=== PATIENT | female | born 1985 | race Caucasian/White ===

== ENCOUNTER 2016-07-30 15:13 | Emergency (ER) | payer BC ==
[2016-07-30 15:31] VITALS: BP 105/72; PULSE 87; RESP 14; TEMP 99.3; O2SAT 99
[2016-07-30 16:15] LABS: COLOR YELLOW; LEUKOCYTE ESTERASE,URINE NEGATIVE (NEGATIVE); NITRITE,URINE NEGATIVE (NEGATIVE)
[2016-07-30] MEDS ORDERED: HYOSCYAMINE SULFATE 0.125 MG TAB PO ONE (16:26)
--- NOTE | 2016-07-30 16:29 | UCPHY ---
H & P Time Seen by Provider: 07/30/16 15:35 Patient Type: New HPI/ROS: This patient has generalized crampy abdominal pain 7/10 intensity at its peak currently mild in intensity slightly worse in left lower quadrant in other places. Symptoms started last night with associated with diarrhea last night. She had a flu episodes of loose watery brown stools. Today she only had 1 episode of loose stool. She also has associated mild nausea but no vomiting. She does have decreased appetite associated with the symptoms. Her last menstrual period was normal timing July 15 which she did is concerned that there is a possibility of being . ROS: No high fevers or chills. No significant fatigue. Constitutional symptoms are otherwise negative. HEENT: No recent URI symptoms. She does have a mild frontal headache similar to previous headaches. No exacerbating factors. Pulmonary: No cough. GI: No blood in her stool or dark tarry stools. : No urinary symptoms. 10 point ROS is otherwise negative. Past Medical/Surgical History: Otherwise healthy. Smoking Status: Never smoked Physical Exam: Vital signs are normal General Appearance: Alert, no distress. Eyes: Pupils equal and round no pallor or injection. ENT, Mouth: Mucous membranes moist. Respiratory: There are no retractions, lungs are clear to auscultation. Cardiovascular: Regular rate and rhythm. Gastrointestinal: Hyperactive bowel sounds, soft, minimal tenderness diffusely slightly more in the left lower quadrant but no guarding or rebound. Back: No CVA tenderness Neurological: Alert with no focal deficits Skin: Warm and dry, no rashes. Musculoskeletal: Neck is supple nontender. Extremities are symmetrical, full range of motion. Psychiatric: Mood and affect are normal DIFFERENTIAL DIAGNOSIS: After history and physical exam differential diagnosis was considered for viral gastroenteritis, food intolerance, UTI, Constitutional: Initial Vital Signs Temperature (C) 37.4 C 07/30/16 15:26 Heart Rate 87 07/30/16 15:26 Respiratory Rate 14 07/30/16 15:26 Blood Pressure 105/72 07/30/16 15:26 O2 Sat (%) 99 07/30/16 15:26 Allergies/Adverse Reactions: No Known Allergies Allergy (Unverified 07/30/16 15:26) Home Medications: Medication Instructions Recorded HYOSCYAMINE SULFATE [LEVSIN-SL] 0.125 - 0.25 mg SL Q6 PRN #20 07/30/16 tab.subl LORAZEPAM 07/30/16 MDM/Departure - MDM Diagnostics: Urinalysis is normal Urine is negative Medications Given: Discontinued Medications Hyoscyamine Sulfate (Levsin, Hyomax-Sl) 0.125 mg PO EDNOW ONE Stop: 07/30/16 16:27 Last Admin: 07/30/16 16:40 Dose: 0.125 mg ED Course/Re-evaluation: I counseled the patient regarding viral gastroenteritis. I think that her generalized crampy discomfort is attributable to this given her increased bowel sounds. She has a benign exam and is tolerating good p.o. intake. She is treated with Levsin with decrease in her cramping. We ruled out ectopic / and rule out UTI. He will do well as an outpatient counseled regarding viral gastroenteritis - Depart Disposition: Home, Routine, Self-Care Clinical Impression: Generalized abdominal cramping Diarrhea Qualifiers: Diarrhea type: unspecified type Qualified Code(s): R19.7 - Diarrhea, unspecified Condition: Good Instructions: Acute Diarrhea (ED) Additional Instructions: Diagnosis: Generalized abdominal cramping 2. Diarrhea You are not & your urinalysis today is normal Plan: Drink plenty fluids Light diet-bananas, rice, applesauce, super comatose and similar to the feel improved Levsin if needed for cramping. Return for any significant worsening despite the treatment plan. Prescriptions: HYOSCYAMINE SULFATE [LEVSIN-SL] 0.125 - 0.25 mg SL Q6 PRN #20 tab.subl PRN Reason: abdominal cramping Referrals: Joy Thomas MD [Primary Care Provider] - As per Instructions - PQRS PQRS Measurement: NA
== END 2016-07-30 16:41 | disposition home or self-care (01) ==
LOC: CED 15:13
DX: R10.84 Generalized abdominal pain (principal); R19.7 Diarrhea, unspecified
CPT/HCPCS: 81003-PO; 81025-PO; 99203-PO; G0463-PO